=== PATIENT | male | born 1945 | race Caucasian/White ===

== ENCOUNTER 2017-05-30 18:15 | Emergency (ER) | payer MEDICARE, OTHER ==
[~2017-05-30] VITALS: Ht 177.8 cm; Wt 140.0 kg
[2017-05-30] MEDS ORDERED: NEXI20TA PO (18:48)
[2017-05-30] MEDS ORDERED: SERT50TA PO (18:48)
[2017-05-30] MEDS ORDERED: MIDO2.5T PO (18:48)
[2017-05-30] MEDS ORDERED: LORA2CON5 PO (18:48)
[2017-05-30] MEDS ORDERED: DRON5CAP6 PO (18:48)
[2017-05-30] MEDS ORDERED: TRAZ50TA11 PO (18:48)
[2017-05-30] MEDS ORDERED: ZOFR8TAB PO (18:48)
[2017-05-30] MEDS ORDERED: TRAM50TA2 PO (18:48)
[2017-05-30] MEDS ORDERED: MIRA3350 PO (18:48)
[2017-05-30] MEDS ORDERED: LINZ290C PO (18:48)
[2017-05-30] MEDS ORDERED: SENN8.6C PO (18:48)
[2017-05-30] MEDS ORDERED: LEVA45AE INH (18:48)
[2017-05-30] MEDS ORDERED: ATOR40TA75 PO (18:48)
[2017-05-30] MEDS ORDERED: FLUD0.1T PO (18:48)
[2017-05-30 19:40] LABS: BASO % 0.7 % (0.0-1.0); EOS # 0.2 K/mm3 (0.0-0.50); LARGE UNSTAINED CELL # 0.1 K/mm3 (0.0-0.4); LYMPH # 0.9 K/mm3 (1.5-4.5); LYMPH % 11.9 % (24.0-44.0); MEAN CORPUSCULAR HEMOGLOBIN 32.6 pg (27.0-33.0); MEAN CORPUSCULAR HGB CONC 34.6 g/dl (32.0-36.5); MEAN CORPUSCULAR VOLUME 94.3 fl (80.0-96.0); MONO # 0.5 K/mm3 (0.0-0.8); MONO % 7.7 % (0.0-5.0); NEUTROPHILS # 5.1 K/mm3 (1.8-7.7); NEUTROPHILS % 74.7 % (36.0-66.0); PLATELET COUNT, AUTOMATED 245 k/mm3 (150-450); WHITE BLOOD COUNT 6.8 K/mm3 (4.0-10.0)
[2017-05-30 19:50] LABS: INR 1.02
[2017-05-30 20:06] LABS: ALBUMIN 3.2 GM/DL (3.2-5.2); ALBUMIN/GLOBULIN RATIO 0.94 (1.00-1.93); ALKALINE PHOSPHATASE 95 U/L (45-117); ALT/SGPT 34 U/L (12-78); AMYLASE 66 U/L (25-115); ANION GAP 7 MEQ/L (8-16); AST/SGOT 23 U/L (15-37); BILIRUBIN,DIRECT 0.2 MG/DL (0.0-0.2); BILIRUBIN,TOTAL 0.6 MG/DL (0.2-1.0); BLOOD UREA NITROGEN 17 MG/DL (7-18); CALCIUM LEVEL 8.4 MG/DL (8.8-10.2); CARBON DIOXIDE LEVEL 34 MEQ/L (21-32); CHLORIDE LEVEL 102 MEQ/L (98-107); CREATININE FOR GFR 0.91 MG/DL (0.70-1.30); GLOMERULAR FILTRATION RATE > 60.0 (>42); GLUCOSE, FASTING 112 MG/DL (83-110); POTASSIUM SERUM 3.7 MEQ/L (3.5-5.1); SODIUM LEVEL 143 MEQ/L (136-145); TOTAL PROTEIN 6.6 GM/DL (6.4-8.2)
[2017-05-30] MEDS ORDERED: KETOROLAC 30 MG/ML VIAL (J1885) IV ONE (20:30)
[2017-05-30] MEDS ORDERED: ONDANSETRON 4MG/2ML VIAL (J2405) IV PRN (20:30)
--- NOTE | 2017-05-30 20:42 | ECGEPIP ---
Stationary ECG Study [facility] - ED Test Date: 2017-05-30 Pat Name: CARLOS BECERRA Department: Room: - Gender: M Card Mounter: ModiB: 1945 Requested By: KIMBERLY PATEL Order Number: [id number] Reading MD: Maxine Zimmerman Measurements Intervals [place] Rate: 75 P: 109 [place]: 211 QRS: 2 QRSD: 139 T: -24 QT: 420 QTc: 470 Interpretive Statements ELECTRONIC ATRIAL PACEMAKER RIGHT BUNDLE BRANCH BLOCK Electronically Signed On 05-30-2017 20:42:31 EDT by Maxine Zimmerman
[2017-05-30 22:20] LABS: MICROSCOPIC INDICATED? MAN YES (NO)
[2017-05-30 22:42] LABS: MICROSCOPIC EXAM PERFORMED; RBC, URINE TNTC /hpf (0-3)
[2017-05-30 22:43] LABS: BACTERIA, URINE NONE SEEN; CALCIUM OXALATE CRYSTALS,URINE SMALL AMOUNT /hpf; HYALINE CAST, URINE NONE SEEN /lpf (0-1); SQUAMOUS EPITHELIAL CELL URINE NONE SEEN /hpf (SMALL AMT); WBC, URINE 0-1 /hpf (0-3)
[2017-05-30] MEDS ORDERED: MORPHINE 2 MG/ML 1ML SYRINGE IV ONE (22:45)
[2017-05-30] MEDS ORDERED: ZOFR4TAB3 PO (22:57)
[2017-05-30] MEDS ORDERED: NORCOTAB PO (22:57)
[2017-05-30] MEDS ORDERED: NORCO 5/325MG TABLET (BULK FOR ED) PO ONE (23:00)
[2017-05-30 23:12] VITALS: BP 185/100
--- NOTE | 2017-05-31 00:10 | REPUSA ---
CLINICAL HISTORY: Abdominal pain. TECHNIQUE: Multiple axial, coronal, sagittal CT images were obtained through the abdomen and pelvis without administration of oral or IV contrast material. COMMENTS: The liver is of uniform attenuation without mass or defect. There is no intra or extrahepatic biliar y ductal dilatation. The spleen is normal. The gallbladder is within normal limits. The pancreas i s of normal contour and attenuation characteristics. There is no evidence of adrenal mass. The kidneys are normal in size, shape and configuration. There is a 5 mm calculus noted in the mid p ole of the right kidney. There are several punctate non-obstructing calculi noted in the superior po le of the right kidney. There is no hydroureter or hydronephrosis. There is no evidence for appendicitis. There is no bowel wall thickening. No evidence for small or large bowel obstruction. There is no evidence of abdominal ascites or lymphadenopathy. The distal esophagus and GE junction appear to be dilated and contain fluid and food debris, this sug gest achalasia. There is no evidence of intrinsic or extrinsic bladder mass. There is no pelvic ascites or lymphaden opathy. There are diffusely increased interstitial lung markings present compatible with end stage pulmonary fibrosis. The heart is enlarged. Pacemaker leads are present. The patient is status post right total hip replacement. Mild chronic compression fracture deformitie s involving T10, T11 and T12 vertebral bodies. Grade-1 anterolisthesis of L3 on L4 is seen. IMPRESSION: 1. 5 mm calculus noted in the mid pole of the right kidney. There are several punctate non-obstruct ing calculi noted in the superior pole of the right kidney. 2. The distal esophagus and GE junction appear to be dilated and contain fluid and food debris, this suggest achalasia. 3. Diffusely increased interstitial lung markings present compatible with end stage pulmonary fibros is. 4. Mild chronic compression fracture deformities involving T10, T11 and T12 vertebral bodies.
== END 2017-05-30 23:20 | disposition home or self-care (01) ==
LOC: M ED 18:15
DX: N23 Unspecified renal colic (principal); R10.9 Unspecified abdominal pain; Z95.0 Presence of cardiac pacemaker; Z95.5 Presence of coronary angioplasty implant and graft; N20.0 Calculus of kidney; J84.10 Pulmonary fibrosis, unspecified; S22.008A Other fracture of unspecified thoracic vertebra, initial encounter for closed fracture; X58.XXXA Exposure to other specified factors, initial encounter; Y92.9 Unspecified place or not applicable; Y93.9 Activity, unspecified; Y99.9 Unspecified external cause status; Z79.82 Long term (current) use of aspirin; Z79.899 Other long term (current) drug therapy

== ENCOUNTER 2017-06-01 11:00 | Inpatient (IN) | payer MEDICARE, OTHER ==
[~2017-06-01] VITALS: Ht 177.8 cm; Wt 59.1 kg
[~2017-06-01 11:00] MED LIST: ATOR40TA75 PO; DRON5CAP6 PO; FLUD0.1T PO; LEVA45AE INH; LINZ290C PO; LORA2CON5 PO; MIDO2.5T PO; MIRA3350 PO; NEXI20TA PO; NORCOTAB PO; SENN8.6C PO; SERT50TA PO; TRAM50TA2 PO; TRAZ50TA11 PO; ZOFR4TAB3 PO; ZOFR8TAB PO
[2017-06-01] MEDS ORDERED: NS 1,000 ML IV ONE (12:00)
[2017-06-01] MEDS: SUCRALFATE 1 GM TAB PO SCH ×3 (12:00→21:45)
[2017-06-01] MEDS ORDERED: ONDANSETRON 4MG/2ML VIAL (J2405) IV ONE (12:15)
[2017-06-01 12:37] LABS: BASO % 0.4 % (0.0-1.0); EOS % 0.5 % (0.0-3.0); LARGE UNSTAINED CELL # 0.1 K/mm3 (0.0-0.4); LARGE UNSTAINED CELL % 0.9 % (0.0-4.0); LYMPH # 0.5 K/mm3 (1.5-4.5); LYMPH % 5.1 % (24.0-44.0); MEAN CORPUSCULAR HEMOGLOBIN 32.6 pg (27.0-33.0); MEAN CORPUSCULAR HGB CONC 35.2 g/dl (32.0-36.5); MEAN CORPUSCULAR VOLUME 92.7 fl (80.0-96.0); MONO # 0.5 K/mm3 (0.0-0.8); MONO % 5.3 % (0.0-5.0); NEUTROPHILS # 8.5 K/mm3 (1.8-7.7); NEUTROPHILS % 87.7 % (36.0-66.0); PLATELET COUNT, AUTOMATED 278 k/mm3 (150-450); RED CELL DISTRIBUTION WIDTH 13.6 % (11.5-14.5); WHITE BLOOD COUNT 9.7 K/mm3 (4.0-10.0)
[2017-06-01] MEDS ORDERED: MORPHINE 2 MG/ML 1ML SYRINGE IV PRN (12:45)
[2017-06-01 13:47] LABS: ALBUMIN 3.4 GM/DL (3.2-5.2); ALKALINE PHOSPHATASE 101 U/L (45-117); ALT/SGPT 28 U/L (12-78); ANION GAP 5 MEQ/L (8-16); AST/SGOT 22 U/L (15-37); BILIRUBIN,DIRECT 0.2 MG/DL (0.0-0.2); BILIRUBIN,TOTAL 0.9 MG/DL (0.2-1.0); BLOOD UREA NITROGEN 21 MG/DL (7-18); CALCIUM LEVEL 8.7 MG/DL (8.8-10.2); CARBON DIOXIDE LEVEL 34 MEQ/L (21-32); CHLORIDE LEVEL 99 MEQ/L (98-107); CREATININE FOR GFR 1.03 MG/DL (0.70-1.30); GLOMERULAR FILTRATION RATE > 60.0 (>42); GLUCOSE, FASTING 100 MG/DL (83-110); POTASSIUM SERUM 3.9 MEQ/L (3.5-5.1); SODIUM LEVEL 138 MEQ/L (136-145); TOTAL PROTEIN 6.8 GM/DL (6.4-8.2)
[2017-06-01] MEDS ORDERED: ISOVUE-370 76% 100ML VIAL (Q9967) As Ordered ONE (14:12)
--- NOTE | 2017-06-01 14:26 | REP ---
Portable chest x-ray: Sitting AP view. History: Vomiting. Comparison study: May 23, 2015. Findings: A bipolar pacemaker remains in the right heart via the left side. EKG electrodes are seen. Diffuse interstitial fibrosis pattern is again noted in the lung givens unchanged. Right hemidiaphragm is slightly elevated as before. Heart is not enlarged. No new infiltrate is seen. Pulmonary vasculature is not increased. Impression: A pacemaker is been installed in the right heart in the interval since the June 05, 2015 prior study. Diffuse interstitial fibrosis pattern is again noted in the lung givens. No acute changes. Signed by Jon Resendiz MD 06/01/2017 03:58 P
--- NOTE | 2017-06-01 14:48 | REP ---
CT PULMONARY ANGIOGRAM: With IV contrast. HISTORY: History of esophagectomy. Vomiting. COMPARISON STUDIES: Comparison CT study May 23, 2015. CONTRAST DOSE: 100 mL of Isovue [address] TECHNIQUE: Helical scanning is acquired and overlapping 1.5 mm and contiguous 3 mm axial images are reformatted. In addition, a 3D work station is deployed to generate thick slab maximum intensity projection images in sagittal and coronal imaging projections. CT PULMONARY ANGIOGRAPHIC FINDINGS: There is good opacification of the pulmonary arterial tree. There is no CT evidence of pulmonary embolism. Thoracic aorta shows some vascular calcification but is otherwise intact and homogeneously enhances. Mild fluid and air distension is seen in the intrathoracic stomach post esophagectomy. Fluid-filled loops of small bowel are seen in the upper abdomen. No pleural or pericardial effusion is noted. There is diffuse interstitial fibrosis pattern in the periphery of the lung givens bilaterally. No hilar or mediastinal mass or adenopathy is observed. Pulmonary fibrosis pattern is unchanged from the comparison CT study May 23, 2015. No bony destructive lesion is seen. IMPRESSION: 1. No CT evidence of pulmonary embolism. 2. Status post esophagectomy and gastric pull-through. 3. Air and fluid fills and somewhat distends the intrathoracic stomach and there are dilated fluid-filled bowel loops in the upper abdomen; question small bowel obstruction. 4. Diffuse interstitial fibrosis pattern in the lung givens again seen. Signed by Jon Resendiz MD 06/01/2017 03:59 P
[2017-06-01] MEDS ORDERED: EFFI10TA4 PO (15:06)
[2017-06-01] MEDS ORDERED: ATIV2TAB PO (15:06)
[2017-06-01] MEDS ORDERED: DIGO0.25 PO (15:06)
[2017-06-01] MEDS ORDERED: MIDO5TA PO ×2 (15:06)
[2017-06-01] MEDS ORDERED: ASPI81TA85 PO (15:06)
[2017-06-01] MEDS ORDERED: NEXI40CA PO (15:07)
--- NOTE | 2017-06-01 15:08 | REP ---
CT ABDOMEN AND PELVIS WITH IV BUT WITHOUT ORAL CONTRAST: HISTORY: Vomiting. History of esophagectomy. The patient also gives a history of prostate carcinoma. 100 mL of Isovue [address] study is compared from May 30, 2017 done without contrast. Comparison CT study is also reviewed from July 03, 2014. CT FINDINGS: Preliminary customer service and sales consultant radiographs show air fluid levels in the upper abdomen anteriorly. A hemiarthroplasty is noted in the right hip. There are fiducial markers noted in the prostate. A pacemaker is seen in the right heart. Peripheral pattern of interstitial fibrosis again seen in the lung bases. Air and fluid distension is seen in the intrathoracic stomach post esophagectomy. The distal intrathoracic stomach measures 3.9 x 6.5 cm in transverse dimension. The thoracic portion of the stomach, the duodenal C-loop and the first portion of the jejunum are also all moderately dilated with air and mostly fluid. The distal small intestine is normal in caliber, largely empty. The right and left colon are not dilated. The findings are compatible with proximal small bowel obstruction. There is no evidence of free intraperitoneal air. The liver and spleen are normal in size and homogeneous in texture. The gallbladder and the pancreas are unchanged. Pancreas is somewhat atrophic. There are intrarenal calculi in the right kidney again noted unchanged from the recent prior study. No hydronephrosis is seen. IMPRESSION: Air and fluid distension of the intrathoracic stomach, abdominal portion of the stomach, duodenal C-loop, and first portion of the jejunum consistent with proximal small bowel obstruction. The distal jejunum and ileum are decompressed. No obstructive lesion is seen. Intrarenal nephrolithiasis is noted in the right kidney as previously reported. Signed by Jon Resendiz MD 06/01/2017 03:59 P
[2017-06-01] MEDS ORDERED: PROMETHAZINE INJ 25 MG/ML VIAL (J2550) IV PRN (15:30)
[2017-06-01] MEDS ORDERED: MORPHINE 4 MG/ML 1ML SYRINGE IV PRN (15:30)
[2017-06-01] MEDS ORDERED: METOCLOPRAMIDE INJ 10MG/2ML VIAL (J2765) IV PRN (15:30)
[2017-06-01 15:40] VITALS: BP 175/79
--- NOTE | 2017-06-01 17:13 | REP ---
Portable chest x-ray: Single view: History: Assess NG tube placement. Comparison study: 06/01/2017 at 01:51 p.m. Findings: In the interval since the prior exam, a nasogastric tube has been passed. It is seen coursing through the mediastinum and deviating to the right of midline in the upper abdomen. The side-hole appears to be in the region of the gastroesophageal junction. Findings are consistent with gastric tip position. Pacemaker is noted in right heart via the left side. There is diffuse interstitial lung disease. The heart is not enlarged. Signed by Jon Resendiz MD 06/02/2017 10:06 A
--- NOTE | 2017-06-01 17:16 | CR.PDOC ---
[facility] Consultation Consultation DATE OF CONSULTATION: Jun 01, 2017 at 11:00 PRIMARY CARE PHYSICIAN: Lauren] Other providers: Cardiology: [place] and [place], GI in [place], [facility] REFERRING PROVIDER: Maddie] ATTENDING PHYSICIAN: Dr. Perkins] HOSPITALIST: Dr. Smith REASON FOR CONSULTATION/CHIEF COMPLAINT: [medical management]. HISTORY OF PRESENT ILLNESS: [Abominal pain, nausea and vomiting]. ALLERGIES: Please see below. HOME MEDICATIONS: Please see below. PAST MEDICAL HISTORY: CORONARY ARTERY DISEASE S/P STENT PLACEMENT PROSTATE CANCER A FIB S/P PACER PULMONARY FIBROSIS GERD ESOPHAGEAL CA ONYCHOMYCOSIS JTUBE PLACEMENT PAST SURGICAL HISTORY: HIP REPLACEMENT RIGHT 01/2008 NEUROROMA REMOVED ON LEFT FOOT 10/2008 SURGERY KNEE, MENISCUS RIGHT 02/2012 FEEDING TUBE PLACEMENT ESOPHAGECTOMY FOR CANCER STENT PLACED 2016 FAMILY HISTORY: FATHER: , CANCER BRAIN TUMOR MOTHER: , LUNG CANCER 2 BROTHER(S) , 1 SISTER(S) . ONE BROTHER RARE FORM OF CANCERONE ADOPTED SON AND ONE STEP SON. SOCIAL HISTORY: Quit smoking 10 years ago. Denies any alcohol use, but on rare occasion. , lives at home with his , resident of [place], but visits the area 6 -7 weeks out of the year. REVIEW OF SYSTEMS: CONSTITUTIONAL: No fever, chills, weight loss, nausea or vomiting . HEENT: No headache, lightheadedness, blurred or loss of vision. No difficulty with speech or swallow. CARDIOVASCULAR: No chest pain, palpitations, paroxysmal nocturnal dyspnea or lower extremity edema RESPIRATORY: No cough, productive sputum, wheeze or hemoptysis GENITOURINARY: No dysuria, frequency or hematuria MUSCULOSKELETAL: No bone, muscle or joint pain. GASTROINTESTINAL: Nausea, vomiting, diarrhea. Describes emesis as dark brown, foul-smelling. Denies hematemesis. Recent visit to the emergency department was told that he had a kidney stone. SKIN: No complaint of lesions, abrasions or rashes NEUROLOGICAL: No blurred vision, headaches, parasthesias or paralysis PSYCHIATRIC: No depression, anxiety, audiovisual hallucinations. No suicidal ideations. ENDOCRINE: Denies history of diabetes or thyroid disorder. No history of endocrine abnormalities. HEMATOLOGIC/LYMPHATIC: No lumpbs, bumps or swelling of neck, axilla or groin. No night sweats or weight loss. PHYSICAL EXAMINATION: VITAL SIGNS: Please see below. GENERAL APPEARANCE: [Mild distress related to abdominal discomfort. Otherwise, alert and oriented 3]. HEENT: [Unremarkable]. RESPIRATORY: [Clear to auscultation bilaterally]. CARDIOVASCULAR: [Regular rate and rhythm]. ABDOMEN: [Mild distention. Hypoactive bowel sounds. Nonspecific tenderness. No rebound tenderness or peritoneal signs]. EXTREMITIES: [Good range of motion limitations. No edema, no calf tenderness]. NEUROLOGICAL: [Cranial nerves II-12 are grossly intact. No motor sensory deficits]. PSYCHIATRIC: [Did not appear to be depressed, anxious, no audiovisual hallucinations]. LABORATORY DATA: Please see below. Twelve-lead EKG: Atrial pacing bundle branch block, trigger rate of 75 bpm, but no acute ST-T wave abnormality. Portable chest x-ray:A pacemaker is been installed in the right heart in the interval since the June 05, 2015 prior study. Diffuse interstitial fibrosis pattern is again noted in the lung givens. No acute changes. CT angiogram of the chest: 1. No CT evidence of pulmonary embolism. 2. Status post esophagectomy and gastric pull-through. 3. Air and fluid fills and somewhat distends the intrathoracic stomach and there are dilated fluid-filled bowel loops in the upper abdomen; question small bowel obstruction. 4. Diffuse interstitial fibrosis pattern in the lung givens again seen. CT of the abdomen and pelvis with contrast: Air and fluid distension of the intrathoracic stomach, abdominal portion of the stomach, duodenal C-loop, and first portion of the jejunum consistent with proximal small bowel obstruction. The distal jejunum and ileum are decompressed. No obstructive lesion is seen. Intrarenal nephrolithiasis is noted in the right kidney as previously reported. ASSESSMENT/PLAN: 1. Abdominal pain with small bowel obstruction. Patient currently has an NG tube with lower medicine section. IV fluids are currently running and pain control. Dr. Thomas is currently involved with the case and I'm sure patient will be nothing by mouth overnight. Since bowel rest is mathis. 2. Coronary artery disease status post stent placement. No findings on EKG, and the patient is not currently complaining of any chest discomfort. 3. History of atrial fibrillation, currently with pacing and rate controlled with ventricular rate of 75. 4. Pulmonary fibrosis. Good oxygen saturations. No wheeze on exam. No acute cardiopulmonary findings on chest x-ray or CT angiogram of the chest. 5. GERD. Symptoms are stable. 6. Cancer. Patient has a prior history of both esophageal cancer, resolving and esophagectomy and radiation and chemotherapy. Currently, no signs of recurrence on CT of the chest or abdomen and pelvis. 7. All medications reviewed. 8. DVT prophylaxis: Heparin SQ Vital Signs/I&O Vital Signs Date Time Temp Pulse Resp B/P (MAP) Pulse Ox O2 Delivery O2 Flow Rate FiO2 06/01/17 14:50 74 156/83 (107) 98 06/01/17 12:58 18 06/01/17 11:16 98.1 Laboratory Data Labs 24H Laboratory Tests 2 06/01/17 12:22: Lactic Acid Level 1.3 06/01/17 12:23: White Blood Count 9.7, Red Blood Count 4.27L, Hemoglobin 13.9L, Hematocrit 39.6L , Mean Corpuscular Volume 92.7, Mean Corpuscular Hemoglobin 32.6, Mean Corpuscular Hemoglobin Concent 35.2, Red Cell Distribution Width 13.6, Platelet Count 278, Neutrophils (%) (Auto) 87.7H, Lymphocytes (%) (Auto) 5.1L, Monocytes (%) (Auto) 5.3H, Eosinophils (%) (Auto) 0.5, Basophils (%) (Auto) 0.4, Neutrophils # (Auto) 8.5H, Lymphocytes # (Auto) 0.5L, Monocytes # (Auto) 0.5, Eosinophils # (Auto) 0.0, Basophils # (Auto) 0.0, Large Unclassified Cells % 0.9 , Large Unclassified Cells # 0.1 06/01/17 12:56: Anion Gap 5L, Glomerular Filtration Rate > 60.0, Calcium Level 8.7L, Aspartate Amino Transf (AST/SGOT) 22, Alanine Aminotransferase (ALT/SGPT) 28, Alkaline Phosphatase 101, Total Bilirubin 0.9, Direct Bilirubin 0.2, Total Creatine Kinase 110, Creatine Kinase MB 1.5, Creatine Kinase MB Relative Index 1.36, Troponin I 0.05#, Total Protein 6.8, Albumin 3.4, Albumin/Globulin Ratio 1.00, Lipase 114 06/01/17 14:40: Urine Appearance HAZY, Urine Color YELLOW, Urine pH 6.0, Urine Specific [place] 1.018, Urine Protein 2+H, Urine Glucose (UA) NEGATIVE, Urine Ketones 1+H, Urine Urobilinogen 0.2, Urine Bilirubin NEGATIVE, Urine Leukocyte Esterase NEGATIVE, Urine Blood 3+H, Urine Nitrite NEGATIVE, Urine WBC (Auto) 19H, Urine RBC (Auto) TNTCH, Urine Hyaline Casts (Auto) 8, Urine Bacteria (Auto) NEGATIVE, Urine Squamous Epithelial Cells 0, Urine Mucus (Auto) SMALL, Urine Sperm (Auto) CBC/BMP Laboratory Tests 06/01/17 12:23 Red Blood Count 4.27 L, Mean Corpuscular Volume 92.7, Mean Corpuscular Hemoglobin 32.6, Mean Corpuscular Hemoglobin Concent 35.2, Red Cell Distribution Width 13.6, Neutrophils (%) (Auto) 87.7 H, Lymphocytes (%) (Auto) 5.1 L, Monocytes (%) (Auto) 5.3 H, Eosinophils (%) (Auto) 0.5, Basophils (%) ( Auto) 0.4, Neutrophils # (Auto) 8.5 H, Lymphocytes # (Auto) 0.5 L, Monocytes # ( Auto) 0.5, Eosinophils # (Auto) 0.0, Basophils # (Auto) 0.0 06/01/17 12:56 Microbiology Microbiology 06/01/17 Urine Culture, Received Pending Allergies Coded Allergies: No Known Allergies (Verified , 05/30/17) Home Medications Scheduled Aspirin (Aspir-81) 81 Mg Tab, 81 MG PO DAILY, (Reported) Atorvastatin Calcium (Atorvastatin Calcium) 40 Mg Tab, 40 MG PO QHS, (Reported) Digoxin (Digoxin) 0.25 Mg Tab, 0.25 MG PO DAILY, (Reported) Dronabinol (Dronabinol) 5 Mg Cap, 5 MG PO BID, (Reported) Esomeprazole Magnesium Trihydr (Nexium) 40 Mg Cap, 40 MG PO BID, (Reported) Fludrocortisone Acetate (Fludrocortisone Acetate) 0.1 Mg Tab, 0.1 MG PO TID, ( Reported) Linaclotide Base (Linzess) 290 Mcg Cap, 290 MCG PO DAILY, (Reported) Midodrine HCl (Midodrine HCl) 5 Mg Tab, 10 MG PO BID, (Reported) AM AND LUNCH TIME Midodrine HCl (Midodrine HCl) 5 Mg Tab, 5 MG PO QHS, (Reported) Polyethylene Glycol (Miralax) 1 Pow Pow, 17 GM PO DAILY, (Reported) dilute in 8 ounces of water or juice Prasugrel Hydrochloride (Effient) 10 Mg Tab, 10 MG PO DAILY, (Reported) Sertraline Hcl (Sertraline HCl) 50 Mg Tab, 50 MG PO QHS, (Reported) Tramadol HCl (Tramadol HCl) 50 Mg Tab, 100 MG PO DAILY, (Reported) Scheduled PRN Levalbuterol Tartrate (Levalbuterol Tartrate Hfa) 45 Mcg/Act Aer, 2 PUFFS INH Q6H PRN for SHORTNESS OF BREATH, (Reported) Lorazepam (Ativan) 2 Mg Tab, 2 MG PO QHS PRN for ANXIETY, (Reported) Ondansetron HCl (Zofran) 8 Mg Tab, 8 MG PO for NAUSEA, (Reported) Senna (Senna) 8.6 Mg Cap, 1 CAP PO for CONSTIPATION, (Reported) Trazodone HCl (Trazodone HCl) 50 Mg Tab, 50 MG PO QHS PRN for SLEEP, (Reported) ANIL SMITH DO Jun 01, 2017 17:16
[2017-06-01] MEDS: ONDANSETRON 4MG/2ML VIAL (J2405) IV PRN (17:57)
[2017-06-01] MEDS: MORPHINE 2 MG/ML 1ML SYRINGE IV PRN (17:57)
[2017-06-01] MEDS: LR 1,000 ML IV SCH (17:58)
[2017-06-01 20:00] VITALS: BP 174/82
[2017-06-01] MEDS ORDERED: zolPIDEM TARTRATE 10MG TAB PO PRN (21:00)
[2017-06-01] MEDS: FLUDROCORTISONE ACETATE 0.1 MG TAB PO SCH (21:46)
[2017-06-01] MEDS: PANTOPRAZOLE 40MG TAB (PROTONIX) PO SCH (21:46)
[2017-06-01] MEDS: traZODone 50 MG TAB PO PRN (21:46)
[2017-06-01] MEDS: HEPARIN SOD (PORCINE) 5000 UNITS/ML VIAL SQ SCH (21:46)
[2017-06-01] MEDS: SERTRALINE HCL 50 MG TAB PO SCH (21:46)
[2017-06-01 22:00] VITALS: BP 138/74
[2017-06-02] MEDS: LR 1,000 ML IV SCH ×3 (00:04→17:28)
[2017-06-02 06:00] VITALS: BP 184/90
[2017-06-02] MEDS: HEPARIN SOD (PORCINE) 5000 UNITS/ML VIAL SQ SCH ×3 (06:38→21:45)
[2017-06-02 06:44] VITALS: BP 136/76
[2017-06-02 07:17] LABS: MEAN CORPUSCULAR HEMOGLOBIN 32.2 pg (27.0-33.0); MEAN CORPUSCULAR HGB CONC 34.8 g/dl (32.0-36.5); MEAN CORPUSCULAR VOLUME 92.6 fl (80.0-96.0); RED CELL DISTRIBUTION WIDTH 13.8 % (11.5-14.5); WHITE BLOOD COUNT 7.3 K/mm3 (4.0-10.0)
[2017-06-02 07:22] LABS: ANION GAP 9 MEQ/L (8-16); BLOOD UREA NITROGEN 18 MG/DL (7-18); CALCIUM LEVEL 8.7 MG/DL (8.8-10.2); CARBON DIOXIDE LEVEL 31 MEQ/L (21-32); CHLORIDE LEVEL 101 MEQ/L (98-107); CREATININE FOR GFR 0.85 MG/DL (0.70-1.30); GLOMERULAR FILTRATION RATE > 60.0 (>42); GLUCOSE, FASTING 74 MG/DL (83-110); POTASSIUM SERUM 3.3 MEQ/L (3.5-5.1); SODIUM LEVEL 141 MEQ/L (136-145)
[2017-06-02] MEDS: SUCRALFATE 1 GM TAB PO SCH ×4 (07:30→21:44)
[2017-06-02] MEDS ORDERED: PRASUGREL 10 MG TAB (EFFIENT) PO SCH (09:00)
[2017-06-02] MEDS: PANTOPRAZOLE 40MG TAB (PROTONIX) PO SCH ×2 (11:02→21:44)
[2017-06-02] MEDS: FLUDROCORTISONE ACETATE 0.1 MG TAB PO SCH ×3 (11:03→21:44)
[2017-06-02] MEDS: DIGOXIN 0.25 MG TAB PO SCH (11:03)
[2017-06-02] MEDS: ASPIRIN 81 MG ENTERIC TAB PO SCH (11:03)
[2017-06-02] MEDS: ONDANSETRON 4MG/2ML VIAL (J2405) IV PRN ×2 (11:19→18:42)
[2017-06-02] MEDS: MORPHINE 2 MG/ML 1ML SYRINGE IV PRN ×2 (11:19→18:42)
--- NOTE | 2017-06-02 13:21 | IPN ---
DATE: 06/02/2017 71-year-old gentleman seen at bedside. No overnight issues reported. Resting comfortably. NG tube is in place on low intermittent suction. He denies any chest pain, shortness of breath. Feels his abdominal pain is much improved. OBJECTIVE: Temperature 98.0, pulse 61 and regular, respiratory rate 18 nonlabored, blood pressure (BP) 136/76, SPO2 is 97% on room air. General: The patient appears to be in no acute distress. He is pleasant. HEENT: Unremarkable. Lungs: Clear. Heart: Regular rate and rhythm. Abdomen: Soft. Normoactive bowel sounds. No masses or rebound. Extremities: No edema. No calf tenderness. LABORATORIES: White count 7.3, hemoglobin 12.6, platelets are 242,000. Sodium 141, potassium 3.3 - which we will supplement, chloride 101, bicarb 31, anion gap 9, BUN is 18, creatinine 0.5, glucose 74. ASSESSMENT/PLAN: 1. Small bowel obstruction, being addressed by surgery. 2. Hypokalemia. Will replete. 3. History of atrial fibrillation. He is currently rate controlled and paced. Not currently on any anticoagulation. 4. Coronary artery disease status post stent placement. No chest discomfort or cardiac symptoms. 5. Pulmonary fibrosis. Maintaining good oxygen saturation. No wheeze on exam. Negative CT of the chest and chest x-ray yesterday on admission. 6. Gastroesophageal reflux disease (GERD). Stable. 7. History of cancer, including esophageal cancer, resulting in esophagectomy as well as radiation and chemotherapy. 8. Deep vein thrombosis (DVT) prophylaxis. Subcutaneous heparin. DISPOSITION: His abdominal exam appears to be relatively unremarkable. His NG tube does appear to have still some bilious material. Will defer to surgery regarding when to try to clamp the NG tube and a trial of clear liquids. In the meantime, will continue to follow for his medical management.
[2017-06-02 14:00] VITALS: BP 141/89
--- NOTE | 2017-06-02 15:49 | IPN ---
DATE: 06/02/2017 SUBJECTIVE: The patient overnight has been relatively comfortable. No significant abdominal pain. No nausea or vomiting. His nasogastric (NG) tube is still putting out bilious fluid. He has not had any bowel movements, no flatus. OBJECTIVE: On his physical exam his abdomen is less distended than it was yesterday, but no guarding, no rebound. No peritoneal signs. IMPRESSION AND PLAN: The patient has evidence of small bowel obstruction. It is not resolved as of yet and we will see how he does over the ensuing 12-24 hours. It may be reasonable to proceed with an upper gastrointestinal (GI) with small-bowel follow-through over this weekend if he has some continued improvement/without significant abdominal pain or distension. Clinically he has had some good improvement over the last 12 hours and we will reevaluate him later on.
--- NOTE | 2017-06-02 15:52 | HPE ---
DATE OF ADMISSION: 06/01/2017 PRINCIPAL DIAGNOSIS: Small-bowel obstruction. HISTORY OF PRESENT ILLNESS: The patient is a 71-year-old male who presents with abdominal pain. It has been going on a few days. Was seen in the emergency room for abdominal pain radiating to his back. Thought that he might have a kidney stone. Was discharged home on pain medication but then over the last 12 hours prior to admission developed nausea and vomiting. Presented to the emergency room with a small-bowel obstruction. He has had a previous small-bowel obstruction in the past and now presents with a very similar history, abdominal pain, crampy abdominal pain, nausea, vomiting. The patient is status post an esophagectomy with a transhiatal esophagectomy as a history and then at this point has had one episode of small-bowel obstruction in the recent past. He has had no fevers or chills. PAST MEDICAL HISTORY: Significant for: 1. History of coronary artery disease with stent placement. 2. History of prostate cancer. 3. History of pacemaker placement. 4. History of atrial fibrillation. 5. History of pulmonary fibrosis. 6. History of gastroesophageal reflux disease. 7. History of esophageal cancer. 8. History of J-tube placement. 9. History of hip replacement. 10. History of neuroma removal, left foot. 11. History of right knee surgery. MEDICATIONS: Include the following: Aspirin, atorvastatin, digoxin, dronobinoll, Nexium, fludrocortisone acetate, Linzess, midrodrine, MiraLax, Effient, sertraline, tramadol as well as some as-needed albuterol, Zofran, senna, and trazodone. PHYSICAL EXAMINATION: Reveal a 71-year-old male who looks stated age. HEENT is unremarkable. Neck supple without adenopathy. Lungs were clear to auscultation without crackles, wheezes, or rhonchi. Heart is regular without murmur with multiple irregular beats. Abdomen is soft, not significantly distended. Without any guarding. No rebound. No peritoneal signs. Extremities are warm, well-perfused. IMPRESSION AND PLAN: The patient has evidence of a small-bowel obstruction on his CT scan, and I anticipate his small-bowel obstruction is relatively proximal given that he does not have any significant amount of distension. In any case, a nasogastric (NG) tube was placed, and he has significant bilious return from this. He states that his abdominal pain is better since having the NG tube in place but overall is not complaining of any severe abdominal pain at this time. At this point will keep him nothing by mouth, intravenous (IV) fluids, NG tube in place, and will see how he does over the ensuing 12-24 hours. Depending on his progress, if he has continued clinical progress, will continue him on this nonoperative course. He understands and agrees to proceed with current treatment.
[2017-06-02] MEDS: PRASUGREL 10 MG PO SCH (17:27)
[2017-06-02] MEDS: traZODone 50 MG TAB PO PRN (21:44)
[2017-06-02] MEDS: ATORVASTATIN 20 MG TAB PO SCH (21:44)
[2017-06-02] MEDS: SERTRALINE HCL 50 MG TAB PO SCH (21:44)
[2017-06-02 22:25] VITALS: BP 144/78
[2017-06-03] MEDS: LR 1,000 ML IV SCH ×3 (00:02→16:00)
[2017-06-03] MEDS: HEPARIN SOD (PORCINE) 5000 UNITS/ML VIAL SQ SCH ×3 (06:24→22:14)
[2017-06-03 06:28] VITALS: BP 138/80
[2017-06-03 07:04] LABS: MEAN CORPUSCULAR HEMOGLOBIN 32.4 pg (27.0-33.0); MEAN CORPUSCULAR HGB CONC 35.1 g/dl (32.0-36.5); MEAN CORPUSCULAR VOLUME 92.2 fl (80.0-96.0); RED CELL DISTRIBUTION WIDTH 13.8 % (11.5-14.5); WHITE BLOOD COUNT 7.3 K/mm3 (4.0-10.0)
[2017-06-03 07:05] LABS: ANION GAP 7 MEQ/L (8-16); BLOOD UREA NITROGEN 20 MG/DL (7-18); CALCIUM LEVEL 8.6 MG/DL (8.8-10.2); CARBON DIOXIDE LEVEL 34 MEQ/L (21-32); CHLORIDE LEVEL 101 MEQ/L (98-107); CREATININE FOR GFR 0.85 MG/DL (0.70-1.30); GLOMERULAR FILTRATION RATE > 60.0 (>42); GLUCOSE, FASTING 72 MG/DL (83-110); POTASSIUM SERUM 3.4 MEQ/L (3.5-5.1); SODIUM LEVEL 142 MEQ/L (136-145)
--- NOTE | 2017-06-03 08:20 | ECGEPIP ---
Stationary ECG Study [facility] - ED Test Date: 2017-06-01 Pat Name: CARLOS BECERRA Department: Room: - Gender: M [employer]: ting : 1945 Requested By: Jr Villa Order Number: [id number] Reading MD: Maxine Zimmerman Measurements Intervals [place] Rate: 75 P: 124 [place]: 178 QRS: 50 QRSD: 135 T: -20 QT: 406 QTc: 455 Interpretive Statements ELECTRONIC ATRIAL PACEMAKER RIGHT BUNDLE BRANCH BLOCK SIMILAR 05/30/17 Electronically Signed On 06-03-2017 8:20:11 EDT by Maxine Zimmerman
[2017-06-03] MEDS: PANTOPRAZOLE 40MG TAB (PROTONIX) PO SCH ×2 (09:35→22:09)
[2017-06-03] MEDS: SUCRALFATE 1 GM TAB PO SCH ×4 (09:37→22:10)
[2017-06-03] MEDS: FLUDROCORTISONE ACETATE 0.1 MG TAB PO SCH ×3 (09:37→22:07)
[2017-06-03] MEDS: ASPIRIN 81 MG ENTERIC TAB PO SCH (09:38)
[2017-06-03] MEDS: PRASUGREL 10 MG PO SCH (09:38)
[2017-06-03] MEDS: DIGOXIN 0.25 MG TAB PO SCH (09:39)
--- NOTE | 2017-06-03 11:46 | REP ---
Acute abdominal series series including PA chest and supine upright abdomen: PA chest: Comparison is 2016. Chronic in an interstitial coarsening is identified compatible with fibrosis, unchanged. There is a nasogastric tube courses to the right underneath the right hemidiaphragm. Upon review of the patient's film file the the patient has an esophagectomy and this configuration of the NG tube is likely secondary to gastric pull-through procedure. The tip appears to be in the gastric antrum or duodenal bulb. There is a dual-chamber pacemaker, unchanged. There is no free subdiaphragmatic air. Cardiac size is normal. Impression: Pulmonary fibrosis. No free subdiaphragmatic air. An esophagectomy with NG tube placement as described. Pacemaker. Abdomen, supine and upright views: There is no bowel distension or obstruction. There are water to air-fluid levels in mildly distended bowel loops, nonspecific, possibly ileus. There are surgical clips in the mid abdomen. There is a right hip arthroplasty. There are surgical clips superimposed over the pubic symphysis. Impression: Nonspecific bowel gas pattern, possibly ileus. Signed by Raghavendra Rashid MD 06/03/2017 11:38 A
[2017-06-03] MEDS ORDERED: POTASSIUM CHLORIDE 10 MEQ SR TABLET PO ONE (16:30)
--- NOTE | 2017-06-03 16:41 | IPN ---
DATE: 06/03/2017 A 71-year-old gentleman seen at bedside. No overnight issues reported. Nasogastric (NG) tube still in place. Lower intermittent suctioned. Denies chest pain. No nausea, vomiting. Continues to pass flatus. OBJECTIVE: Temperature is 98.8, pulse 83 and regular, respiratory rate 18, blood pressure (BP) 138/80, SpO2 is 96% on room air. GENERAL: The patient appears to be in no acute distress. Is alert and oriented. HEENT: Unremarkable. LUNGS: Clear. HEART: Regular rate and rhythm. ABDOMEN: Soft, nontender, nondistended with positive bowel sounds. No masses or rebound. EXTREMITIES: No edema. No calf tenderness. LABORATORY DATA: White count 7.3, hemoglobin 12.1, platelets 244,000. Sodium 142, potassium 3.4, which we will supplement, chloride 101, bicarbonate 34, anion gap 7, BUN 20, creatinine 0.85, glucose 72. ASSESSMENT AND PLAN: 1. Small bowel obstruction with NG tube in place, being addressed by surgery. 2. Hyperkalemia. We will replete. 3. History of atrial fibrillation, rate controlled and paced. Currently not on anticoagulation. 4. Coronary artery disease status post stent placement. No chest discomfort or cardiac symptoms. 5. Right pulmonary fibrosis. He continues to maintain good oxygen saturations. No wheeze. 6. Gastroesophageal reflux disease (GERD), stable. 7. History of cancer, including esophageal cancer, resulting esophagectomy, radiation, and chemotherapy, possibly a source of adhesions. Defer to surgery. 8. Deep vein thrombosis (DVT) prophylaxis. Subcutaneous heparin. DISPOSITION: He does continue to show some gradual improvement. We will defer the management of the NG tube and advancing diet to surgery.
[2017-06-03] MEDS: KCL 20MEQ IN D5/0.45NS 1000ML 1,000 ML IV SCH (19:05)
[2017-06-03] MEDS: MORPHINE 2 MG/ML 1ML SYRINGE IV PRN (21:12)
[2017-06-03 22:00] VITALS: BP 145/65
[2017-06-03] MEDS: traZODone 50 MG TAB PO PRN (22:07)
[2017-06-03] MEDS: SERTRALINE HCL 50 MG TAB PO SCH (22:08)
[2017-06-03] MEDS: SENNA 8.6 MG TAB (SENOKOT) PO SCH (22:08)
[2017-06-03] MEDS: DOCUSATE SODIUM 100 MG CAP PO SCH (22:08)
[2017-06-03] MEDS: ATORVASTATIN 20 MG TAB PO SCH (22:10)
[2017-06-03] MEDS: ONDANSETRON 4MG/2ML VIAL (J2405) IV PRN (22:12)
[2017-06-03] MEDS: LORazepam 2 MG TAB PO PRN (23:43)
[2017-06-04] MEDS: KCL 20MEQ IN D5/0.45NS 1000ML 1,000 ML IV SCH ×3 (04:45→17:08)
[2017-06-04] MEDS: HEPARIN SOD (PORCINE) 5000 UNITS/ML VIAL SQ SCH ×3 (05:45→21:14)
[2017-06-04 06:00] VITALS: BP 181/84
[2017-06-04 07:12] LABS: MEAN CORPUSCULAR HEMOGLOBIN 32.5 pg (27.0-33.0); MEAN CORPUSCULAR HGB CONC 35.8 g/dl (32.0-36.5); MEAN CORPUSCULAR VOLUME 90.7 fl (80.0-96.0); RED CELL DISTRIBUTION WIDTH 13.6 % (11.5-14.5); WHITE BLOOD COUNT 8.6 K/mm3 (4.0-10.0)
[2017-06-04 07:18] LABS: ANION GAP 6 MEQ/L (8-16); BLOOD UREA NITROGEN 12 MG/DL (7-18); CARBON DIOXIDE LEVEL 35 MEQ/L (21-32); CHLORIDE LEVEL 103 MEQ/L (98-107); CREATININE FOR GFR 0.84 MG/DL (0.70-1.30); GLOMERULAR FILTRATION RATE > 60.0 (>42); GLUCOSE, FASTING 137 MG/DL (83-110); POTASSIUM SERUM 3.2 MEQ/L (3.5-5.1); SODIUM LEVEL 144 MEQ/L (136-145)
[2017-06-04] MEDS ORDERED: POTASSIUM CHLORIDE 10 MEQ SR TABLET PO ONE (08:15)
[2017-06-04] MEDS: PRASUGREL 10 MG PO SCH (09:00)
--- NOTE | 2017-06-04 09:12 | IPN ---
DATE: 06/04/2017 71-year-old gentleman seen at bedside, resting comfortably. He denies any complaints. No chest pain. He was started on clear liquids this morning. No abdominal pain. No nausea or vomiting. OBJECTIVE: Temperature 98.8, pulse 76, respiratory rate is 20, blood pressure 145/65, SPO2 is 95% on room air. GENERAL: The patient appears to be in no acute distress, is alert and oriented. HEENT: Unremarkable. LUNGS: Clear. HEART: Regular rate and rhythm. ABDOMEN: Soft. EXTREMITIES: No edema. No calf tenderness. LABORATORY DATA: White count is 8.6, hemoglobin 10.9, platelets 225. Sodium is 144, potassium 3.2, chloride 103, bicarb 35, anion gap 6, BUN is 12, creatinine 0.84, glucose 137. ASSESSMENT/PLAN: 1. Abdominal pain with small-bowel obstruction. NG tube has been removed. He is passing flatus and will try clear liquids today. Appreciate Dr. Thomas's assistance. 2. Hypokalemia, which we will replete. 3. Atrial fibrillation. He is rate controlled and paced. He is currently not on any anticoagulation. 4. Coronary artery disease status post stent placement. No chest discomfort. No cardiac symptoms. 5. History of pulmonary fibrosis. He has maintaining good oxygen saturations. 6. Gastroesophageal reflux disease (GERD). Stable. 7. History of cancer, including esophageal cancer resulting in esophagectomy, radiation therapy and chemotherapy. Possibly the source of adhesions and appreciate Dr. Thomas's management. 8. Deep vein thrombosis (DVT) prophylaxis. Subcu heparin. DISPOSITION: Will see how he does today. See if we can progress his diet over the next 24 hours. Will continue to follow along during his hospital stay for assistance with medical management.
[2017-06-04] MEDS: SUCRALFATE 1 GM TAB PO SCH ×4 (10:35→21:14)
[2017-06-04] MEDS: DOCUSATE SODIUM 100 MG CAP PO SCH ×2 (10:35→21:14)
[2017-06-04] MEDS: SENNA 8.6 MG TAB (SENOKOT) PO SCH ×2 (10:35→21:14)
[2017-06-04] MEDS: PANTOPRAZOLE 40MG TAB (PROTONIX) PO SCH ×2 (10:36→21:14)
[2017-06-04] MEDS: DIGOXIN 0.25 MG TAB PO SCH (10:36)
[2017-06-04] MEDS: FLUDROCORTISONE ACETATE 0.1 MG TAB PO SCH ×3 (10:37→21:14)
[2017-06-04] MEDS: ASPIRIN 81 MG ENTERIC TAB PO SCH (10:37)
--- NOTE | 2017-06-04 11:10 | IPNPDOC ---
Subjective General Date/Time Seen The patient was seen on 06/04/17 at 11:06. Subject Chief Complaint/History The patient is a 71-year-old male admitted with a reason for visit of Small Bowel Obstruction. NGT removed last night on clears this am, tolerating it. Had one BM this morning. Denies abdominal pain, nausea, distention. Current Medications Current Medications Current Medications Aspirin (Ecotrin) 81 mg DAILY PO Last administered on 06/04/17 10:37; Start at 09:00; Stop 07/02/17 at 08:59 Atorvastatin Calcium (Lipitor) 40 mg QHS PO Last administered on 06/03/17 22: 10; Start 06/02/17 at 21:00; Stop 07/02/17 at 20:59 Digoxin (Lanoxin) 0.25 mg DAILY PO Last administered on 06/04/17 10:36; Start 06/02/17 at 09:00; Stop 07/02/17 at 08:59 Docusate Sodium (Colace) 200 mg BID PO Last administered on 06/04/17 10:35; Start 06/03/17 at 21:00; Stop 07/03/17 at 20:59 Fludrocortisone Acetate (Florinef) 0.1 mg TID PO Last administered on 10:37; Start 06/01/17 at 21:00; Stop 07/01/17 at 20:59 Heparin Sodium (Porcine) (Heparin) 5,000 units Q8H SQ Last administered on 06/04 05:45; Start 06/01/17 at 22:00; Stop 06/06/17 at 21:59 Home Med (Med Rec Complete!) ASDIRECTED XX ; Start 06/01/17 at 15:15; Stop at 15:15; Status DC Lactated Ringer's 1,000 ml @ 125 mls/hr Q8H IV Last administered on 06/03/17 16:00; Start 06/01/17 at 16:00; Stop 06/03/17 at 18:52; Status DC Lorazepam (Ativan) 2 mg QHS PRN PO ANXIETY Last administered on 06/03/17 23:43 ; Start 06/01/17 at 17:15; Stop 06/08/17 at 17:14 Metoclopramide HCl (REGLAN INJection) 10 mg Q6HP PRN IV NAUSEA OR VOMITING; Start 06/01/17 at 15:30; Stop 07/01/17 at 15:29 Miscellaneous (Unresolved Clarification Entry) SEE LABEL COMMENTS UNRESOLVED XX Last administered on 06/02/17 00:01; Start 06/01/17 at 00:01; Stop 06/02/17 at 14:40; Status DC Morphine Sulfate (Morphine Sulfate Inj) 2 mg Q2HP PRN IV SEVERE PAIN (PS 8-10) Last administered on 06/03/17 21:12; Start 06/01/17 at 15:30; Stop 06/08/17 at 15:29 Morphine Sulfate (Morphine Sulfate Inj) 2 mg Q30M PRN IV MODERATE PAIN (PS 5-7 ) Last administered on 06/01/17 12:38; Start 06/01/17 at 12:45; Stop 06/01/17 at 15:45; Status DC Morphine Sulfate (Morphine Sulfate Inj) 4 mg Q2HP PRN IV SEVERE PAIN (PS 8-10) ; Start 06/01/17 at 15:30; Stop 06/08/17 at 15:29 Ondansetron HCl (ZOFRAN INJection) 4 mg Q6HP PRN IV NAUSEA OR VOMITING Last administered on 06/03/17 22:12; Start 06/01/17 at 15:30; Stop 07/01/17 at 15:29 Pantoprazole Sodium (Protonix) 40 mg BID PO Last administered on 06/04/17 10: 36; Start 06/01/17 at 21:00; Stop 07/01/17 at 20:59 Patient Own Medication (Patient'S Own Med) 10MG DAILY PO Last administered on 09:38; Start 06/02/17 at 09:00; Stop 07/02/17 at 08:59 Potassium Chloride/Dextrose/ Sod Cl 1,000 ml @ 125 mls/hr Q8H IV Last administered on 06/04/17 10:37; Start 06/03/17 at 19:00; Stop 07/03/17 at 18:59 Potassium Chloride (Micro-K Extencaps) 40 meq DAILY PO ; Start 06/05/17 at 09:00 ; Stop 07/05/17 at 08:59 Prasugrel (Effient) 10 mg DAILY PO ; Start 06/02/17 at 09:00; Stop 06/02/17 at 09:00; Status DC Promethazine HCl (PHENERGAN INJection) 12.5 mg Q6HP PRN IV NAUSEA; Start at 15:30; Stop 07/01/17 at 15:29 Senna (Senokot) 2 tab BID PO Last administered on 06/04/17 10:35; Start at 21:00; Stop 07/03/17 at 20:59 Sertraline HCl (Zoloft) 50 mg QHS PO Last administered on 06/03/17 22:08; Start 06/01/17 at 21:00; Stop 07/01/17 at 20:59 Sucralfate (Carafate) 1 gm ACHS PO Last administered on 06/04/17 10:35; Start 06/01/17 at 12:00; Stop 07/01/17 at 11:59 Trazodone HCl (Desyrel) 50 mg QHS PRN PO SLEEP Last administered on 06/03/17 22:07; Start 06/01/17 at 21:00; Stop 07/01/17 at 20:59 Zolpidem Tartrate (Ambien) 10 mg QHSP PRN PO INSOMNIA; Start 06/01/17 at 21:00 ; Stop 06/01/17 at 21:00; Status DC Allergies Coded Allergies: No Known Allergies (Verified , 05/30/17) Objective Physical Examination Examination GENERAL APPEARANCE:Patient seen, laying in bed, awake, alert, and oriented. Comfortable, in no acute distress. SKIN: Warm and moist. HEENT: Normocephalic, atraumatic. [place] palpebral conjunctiva, anicteric sclerae. Lips and mucosa appear moist. NECK: Supple, no thyromegaly. No obvious jugular venous distention. LUNGS: Clear to auscultation bilaterally. No wheezing appreciated. HEART: slight irregular rhythm, regular rate, no murmurs. ABDOMEN: Abdomen is nondistended, soft, nontender. EXTREMITIES: Extremities have no deformities. No edema identified. Vital Signs Vital Signs Date Time Temp Pulse Resp B/P (MAP) Pulse Ox O2 Delivery O2 Flow Rate FiO2 06/04/17 10:36 76 06/04/17 06:00 98.8 20 181/84 (116) 95 Room Air I&Os I&O- Last 24 Hours up to 6 AM 06/04/17 05:59 Intake Total 1500 ml Output Total 1300 ml Balance 200 ml Laboratory Data Labs 24H Laboratory Tests 2 06/04/17 06:45: Anion Gap 6L, Glomerular Filtration Rate > 60.0, Blood Urea Nitrogen 12, Creatinine 0.84, Sodium Level 144, Potassium Level 3.2L, Chloride Level 103, Carbon Dioxide Level 35H, Calcium Level 8.0L CBC/BMP Laboratory Tests 06/04/17 06:45 Red Blood Count 3.34 L, Mean Corpuscular Volume 90.7, Mean Corpuscular Hemoglobin 32.5, Mean Corpuscular Hemoglobin Concent 35.8, Red Cell Distribution Width 13.6, Calcium Level 8.0 L Microbiology Microbiology 06/01/17 Urine Culture - Final, Complete Enterococcus Faecalis Impression small bowel obstruction, resolved advance diet if tolerating clears continue ambulation Plan / VTE VTE Prophylaxis Ordered?: Yes ALMA PARSONS MD Jun 04, 2017 11:10
[2017-06-04] MEDS: ATORVASTATIN 20 MG TAB PO SCH (21:14)
[2017-06-04] MEDS: SERTRALINE HCL 50 MG TAB PO SCH (21:15)
[2017-06-04] MEDS: traZODone 50 MG TAB PO PRN (21:20)
[2017-06-04 22:00] VITALS: BP 204/100
[2017-06-04] MEDS ORDERED: hydrALAZINE INJ 20 MG/ML VIAL IV SCH (22:15)
[2017-06-04] MEDS ORDERED: **hydrALAZINE** 10 MG TAB PO ONE (23:00)
[2017-06-04] MEDS: LORazepam 2 MG TAB PO PRN (23:00)
[2017-06-05 02:00] VITALS: BP 170/82
[2017-06-05] MEDS: KCL 20MEQ IN D5/0.45NS 1000ML 1,000 ML IV SCH (03:00)
[2017-06-05 06:00] VITALS: BP 140/72
[2017-06-05] MEDS: **hydrALAZINE** 10 MG TAB PO SCH ×2 (06:00→12:00)
[2017-06-05] MEDS: HEPARIN SOD (PORCINE) 5000 UNITS/ML VIAL SQ SCH (06:33)
[2017-06-05 07:02] LABS: MEAN CORPUSCULAR HEMOGLOBIN 32.9 pg (27.0-33.0); MEAN CORPUSCULAR HGB CONC 36.1 g/dl (32.0-36.5); MEAN CORPUSCULAR VOLUME 91.3 fl (80.0-96.0); RED CELL DISTRIBUTION WIDTH 14.2 % (11.5-14.5); WHITE BLOOD COUNT 8.5 K/mm3 (4.0-10.0)
[2017-06-05 07:03] LABS: ANION GAP 8 MEQ/L (8-16); BLOOD UREA NITROGEN 11 MG/DL (7-18); CARBON DIOXIDE LEVEL 34 MEQ/L (21-32); CHLORIDE LEVEL 105 MEQ/L (98-107); CREATININE FOR GFR 0.73 MG/DL (0.70-1.30); GLOMERULAR FILTRATION RATE > 60.0 (>42); GLUCOSE, FASTING 95 MG/DL (83-110); POTASSIUM SERUM 2.8 MEQ/L (3.5-5.1); SODIUM LEVEL 147 MEQ/L (136-145)
[2017-06-05] MEDS: PANTOPRAZOLE 40MG TAB (PROTONIX) PO SCH (08:17)
[2017-06-05] MEDS: DOCUSATE SODIUM 100 MG CAP PO SCH (08:17)
[2017-06-05] MEDS: ASPIRIN 81 MG ENTERIC TAB PO SCH (08:18)
[2017-06-05] MEDS: FLUDROCORTISONE ACETATE 0.1 MG TAB PO SCH (08:18)
[2017-06-05] MEDS: SENNA 8.6 MG TAB (SENOKOT) PO SCH (08:18)
[2017-06-05] MEDS: DIGOXIN 0.25 MG TAB PO SCH (08:18)
[2017-06-05] MEDS: SUCRALFATE 1 GM TAB PO SCH ×2 (08:18→12:30)
[2017-06-05] MEDS: PRASUGREL 10 MG PO SCH (08:20)
[2017-06-05] MEDS ORDERED: POTASSIUM CHLORIDE 10 MEQ SR TABLET PO SCH (09:00)
[2017-06-05] MEDS ORDERED: POTASSIUM CHLORIDE 10 MEQ SR TABLET PO ONE (10:00)
[2017-06-05 11:20] LABS: PHOSPHORUS LEVEL 1.9 MG/DL (2.5-4.9)
--- NOTE | 2017-06-05 11:23 | IPNPDOC ---
Subjective General Date/Time Seen The patient was seen on 06/05/17 at 11:21. Subject Chief Complaint/History The patient is a 71-year-old male admitted with a reason for visit of Small Bowel Obstruction. Patient reports 3 loose stools yesterday and 2 today. Tolerating diet. K+ continue to be low despite oral supplementation. Patient wants to go home today. They plan to drive to [place]. Current Medications Current Medications Current Medications Aspirin (Ecotrin) 81 mg DAILY PO Last administered on 06/05/17 08:18; Start at 09:00; Stop 07/02/17 at 08:59 Atorvastatin Calcium (Lipitor) 40 mg QHS PO Last administered on 06/04/17 21: 14; Start 06/02/17 at 21:00; Stop 07/02/17 at 20:59 Digoxin (Lanoxin) 0.25 mg DAILY PO Last administered on 06/05/17 08:18; Start 06/02/17 at 09:00; Stop 07/02/17 at 08:59 Docusate Sodium (Colace) 200 mg BID PO Last administered on 06/05/17 08:17; Start 06/03/17 at 21:00; Stop 07/03/17 at 20:59 Fludrocortisone Acetate (Florinef) 0.1 mg TID PO Last administered on 08:18; Start 06/01/17 at 21:00; Stop 07/01/17 at 20:59 Heparin Sodium (Porcine) (Heparin) 5,000 units Q8H SQ Last administered on 06/05 06:33; Start 06/01/17 at 22:00; Stop 06/06/17 at 21:59 Home Med (Med Rec Complete!) ASDIRECTED XX ; Start 06/01/17 at 15:15; Stop at 15:15; Status DC Hydralazine HCl (Apresoline) 10 mg Q6H IV ; Start 06/04/17 at 22:15; Stop at 22:48; Status DC Hydralazine HCl (Apresoline) 10 mg Q6H PO ; Start 06/05/17 at 06:00; Stop at 05:59 Lactated Ringer's 1,000 ml @ 125 mls/hr Q8H IV Last administered on 06/03/17 16:00; Start 06/01/17 at 16:00; Stop 06/03/17 at 18:52; Status DC Lorazepam (Ativan) 2 mg QHS PRN PO ANXIETY Last administered on 06/04/17 23:00 ; Start 06/01/17 at 17:15; Stop 06/08/17 at 17:14 Metoclopramide HCl (REGLAN INJection) 10 mg Q6HP PRN IV NAUSEA OR VOMITING; Start 06/01/17 at 15:30; Stop 07/01/17 at 15:29 Miscellaneous (Unresolved Clarification Entry) SEE LABEL COMMENTS UNRESOLVED XX Last administered on 06/02/17 00:01; Start 06/01/17 at 00:01; Stop 06/02/17 at 14:40; Status DC Morphine Sulfate (Morphine Sulfate Inj) 2 mg Q2HP PRN IV SEVERE PAIN (PS 8-10) Last administered on 06/03/17 21:12; Start 06/01/17 at 15:30; Stop 06/08/17 at 15:29 Morphine Sulfate (Morphine Sulfate Inj) 2 mg Q30M PRN IV MODERATE PAIN (PS 5-7 ) Last administered on 06/01/17 12:38; Start 06/01/17 at 12:45; Stop 06/01/17 at 15:45; Status DC Morphine Sulfate (Morphine Sulfate Inj) 4 mg Q2HP PRN IV SEVERE PAIN (PS 8-10) ; Start 06/01/17 at 15:30; Stop 06/08/17 at 15:29 Ondansetron HCl (ZOFRAN INJection) 4 mg Q6HP PRN IV NAUSEA OR VOMITING Last administered on 06/03/17 22:12; Start 06/01/17 at 15:30; Stop 07/01/17 at 15:29 Pantoprazole Sodium (Protonix) 40 mg BID PO Last administered on 06/05/17 08: 17; Start 06/01/17 at 21:00; Stop 07/01/17 at 20:59 Patient Own Medication (Patient'S Own Med) 10MG DAILY PO Last administered on 08:20; Start 06/02/17 at 09:00; Stop 07/02/17 at 08:59 Potassium Chloride/Dextrose/ Sod Cl 1,000 ml @ 125 mls/hr Q8H IV Last administered on 06/04/17 10:37; Start 06/03/17 at 19:00; Stop 06/05/17 at 07:08 ; Status DC Potassium Chloride (Micro-K Extencaps) 40 meq DAILY PO Last administered on 08:17; Start 06/05/17 at 09:00; Stop 07/05/17 at 08:59 Prasugrel (Effient) 10 mg DAILY PO ; Start 06/02/17 at 09:00; Stop 06/02/17 at 09:00; Status DC Promethazine HCl (PHENERGAN INJection) 12.5 mg Q6HP PRN IV NAUSEA; Start at 15:30; Stop 07/01/17 at 15:29 Senna (Senokot) 2 tab BID PO Last administered on 06/05/17 08:18; Start at 21:00; Stop 07/03/17 at 20:59 Sertraline HCl (Zoloft) 50 mg QHS PO Last administered on 06/04/17 21:15; Start 06/01/17 at 21:00; Stop 07/01/17 at 20:59 Sucralfate (Carafate) 1 gm ACHS PO Last administered on 06/05/17 08:18; Start 06/01/17 at 12:00; Stop 07/01/17 at 11:59 Trazodone HCl (Desyrel) 50 mg QHS PRN PO SLEEP Last administered on 06/04/17 21:20; Start 06/01/17 at 21:00; Stop 07/01/17 at 20:59 Zolpidem Tartrate (Ambien) 10 mg QHSP PRN PO INSOMNIA; Start 06/01/17 at 21:00 ; Stop 06/01/17 at 21:00; Status DC Allergies Coded Allergies: No Known Allergies (Verified , 05/30/17) Objective Physical Examination Examination GENERAL APPEARANCE:Patient seen, laying in bed, awake, alert, and oriented. Comfortable, in no acute distress. SKIN: Warm and moist. HEENT: Normocephalic, atraumatic. [place] palpebral conjunctiva, anicteric sclerae. Lips and mucosa appear moist. NECK: Supple, no thyromegaly. No obvious jugular venous distention. LUNGS: Clear to auscultation bilaterally. No wheezing appreciated. HEART: No chest wall abnormalities. Regular rate and rhythm with no murmurs appreciated. ABDOMEN: Abdomen is flat, soft, nontender to palpation, nondistended. EXTREMITIES: Extremities have no deformities. No edema identified. Vital Signs Vital Signs Date Time Temp Pulse Resp B/P (MAP) Pulse Ox O2 Delivery O2 Flow Rate FiO2 06/05/17 08:18 75 06/05/17 06:00 140/72 06/05/17 06:00 98.6 18 95 Room Air I&Os I&O- Last 24 Hours up to 6 AM 06/05/17 06:00 Intake Total 1540 ml Output Total 580 ml Balance 960 ml Laboratory Data Labs 24H Laboratory Tests 2 06/05/17 06:31: Anion Gap 8, Glomerular Filtration Rate > 60.0, Blood Urea Nitrogen 11, Creatinine 0.73, Sodium Level 147H, Potassium Level 2.8*L, Chloride Level 105, Carbon Dioxide Level 34H, Calcium Level 8.0L, Phosphorus Level 1.9L, Albumin 3.0L CBC/BMP Laboratory Tests 06/05/17 06:31 Red Blood Count 3.48 L, Mean Corpuscular Volume 91.3, Mean Corpuscular Hemoglobin 32.9, Mean Corpuscular Hemoglobin Concent 36.1, Red Cell Distribution Width 14.2, Calcium Level 8.0 L Microbiology Microbiology 06/01/17 Urine Culture - Final, Complete Enterococcus Faecalis Impression Small bowel obstruction resolved Low Potassium Patient got 80 meq of potassium today. will recheck it today prior to discharge and give hime potassium supplements to go home with, Plan / VTE VTE Prophylaxis Ordered?: Yes ALMA PARSONS MD Jun 05, 2017 11:23
[2017-06-05] MEDS ORDERED: POTA10CA PO (11:27)
[2017-06-05 12:00] VITALS: BP 140/63
[2017-06-05 12:25] VITALS: BP 140/63
--- NOTE | 2017-06-05 13:08 | IPN ---
DATE OF SERVICE: 06/05/2017 A 71-year-old male resting comfortably. Tolerating meals. No chest pain, nausea, vomiting, or diarrhea. OBJECTIVE: Temperature is 98.7, pulse 75, respiratory rate 18, blood pressure (BP) 140/72, SPO2 is 95% on room air. General: The patient appears to be in no acute distress. Alert, pleasant. HEENT: Unremarkable. Lungs: Clear. Heart: Regular rate and rhythm. Abdomen: Soft. Extremities: No edema. No calf tenderness. LABORATORY DATA: White count 8.5, hemoglobin 11.5, platelets are 194,000. Sodium is 147, potassium 2.8, magnesium is pending, chloride 105, bicarbonate 34, anion gap 8, BUN is 11, creatinine 0.73, phosphorus 1.9, albumin 3.0. ASSESSMENT AND PLAN: 1. Hypokalemia. Will supplement. Check a magnesium level on repeat later today. 2. Abdominal pain with small-bowel obstruction. Nasogastric (NG) tube removed. He is tolerating by mouth intake. Appreciate Dr. Holguin's assistance. 3. Atrial fibrillation, rate controlled with pacer. Not currently on anticoagulation therapy. Will defer to primary care provider. 4. Coronary artery disease, status post stent placement. No chest comfort. No cardiac symptoms. 5. History of pulmonary fibrosis. Maintaining good oxygen saturations. 6. Gastroesophageal reflux disease (GERD). Stable. 7. History of cancer, including esophageal cancer resulting in esophagectomy, radiation therapy, and chemotherapy. Can followup outpatient. 8. Deep venous thrombosis (DVT) prophylaxis, subcutaneous heparin. DISPOSITION: Anticipate discharge later today or tomorrow depending on his repeat laboratories.
--- NOTE | 2017-06-20 21:55 | DSES ---
DATE OF ADMISSION: 06/01/2017 DATE OF DISCHARGE: 06/05/2017 PRINCIPAL DIAGNOSIS: Small-bowel obstruction. ASSOCIATED DIAGNOSES: History of esophageal cancer with transhiatal esophagectomy and history of coronary artery disease, history of prostate cancer, history of pacemaker placement, history of atrial fibrillation, history of pulmonary fibrosis, history of GE reflux disease, history of J tube placement, history of hip replacement, history of neuroma removal left foot, history of right knee surgery. HISTORY OF PRESENT ILLNESS: The patient is a 71-year-old male who presents with abdominal pain going on a few days, came to the emergency room with pain radiating to his back and they felt that he may have a kidney stone and he was discharged on home on pain medication but developed progressive nausea and vomiting and presented to the emergency room with a small-bowel obstruction. He has had a previous small-bowel obstruction in the past and with a very similar history with this crampy abdominal pain, nausea, vomiting, essentially had resolved with NG tube decompression. HOSPITAL COURSE SUMMARY: The patient had an NG tube placed, had significant improvement of his abdominal discomfort over the first 12 hours to 24 hours. However, it was slow to progress his resolution of his symptoms over the ensuing few days. Eventually he seemed to make some good progress and was discharged home on 06/05/2017, tolerating a regular diet. He was to followup with his primary care provider as an outpatient in the next 2-3 weeks. DISCHARGE MEDICATIONS: His previous medications include aspirin, atorvastatin, digoxin, dronabanol, Nexium, fludrocortisone, albuterol, Linzess, Ativan, midrodrine, Zofran, MiraLax, Effient, senna, sertraline, tramadol, trazodone and potassium chloride. 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
== END 2017-06-05 14:20 | disposition home or self-care (01) | DRG 390 ==
LOC: M ED 11:00 → M ED INP 15:27 → M MS5PR 17:35
PROVIDERS: ADMIT Surgery; ATTEND Surgery
DX: K56.60 Unspecified intestinal obstruction (principal); I25.10 Atherosclerotic heart disease of native coronary artery without angina pectoris; I48.91 Unspecified atrial fibrillation; K21.9 Gastro-esophageal reflux disease without esophagitis; J84.10 Pulmonary fibrosis, unspecified; Z85.46 Personal history of malignant neoplasm of prostate; Z85.01 Personal history of malignant neoplasm of esophagus; Z95.0 Presence of cardiac pacemaker; Z79.82 Long term (current) use of aspirin; Z79.899 Other long term (current) drug therapy; Z96.641 Presence of right artificial hip joint; E87.6 Hypokalemia